=== PATIENT | male | born 1995 | race Caucasian/White ===

== ENCOUNTER 2023-11-20 14:50 | Outpatient (CLI) | payer OTHER, SELFPAY ==
--- NOTE | 2023-11-20 15:00 | CRLHL7_ITS ---
For Patients: As a result of the Cures Act, medical imaging exams and procedure reports are released immediately into your electronic medical record. You may view this report before your referring provider. If you have questions, please contact your health care provider. INDICATION: Neck pain. Arthritis. FINDINGS: Two views of the cervical spine are submitted. No comparison. The overall stature and alignment of the cervical spine is within normal limits. The prevertebral soft tissues are within normal limits. Intervertebral disc space height appears within normal limits. No evidence of suspicious hypertrophy seen within the visualized facets of the cervical spine. IMPRESSION: No radiographic evidence of acute osseous injury. Dictated by Otilio Maza MD @ 11/20/2023 3:25:20 PM (Electronically Signed)
== END 2023-11-20 14:51 | disposition home or self-care (01) ==
LOC: RAD 14:54
PROVIDERS: Visit Provider Chiropractor
DX: M13.80 Other specified arthritis, unspecified site (principal)
CPT/HCPCS: 72040